=== PATIENT | female | born 1990 | race Caucasian/White ===

== ENCOUNTER 2017-06-30 14:06 | Emergency (ER) | payer OTHER ==
[~2017-06-30] VITALS: Ht 165.1 cm; Wt 52.8 kg
[2017-06-30 14:11] VITALS: Ht 165.1 cm; Wt 52.8 kg
--- NOTE | 2017-06-30 16:10 | ERD ---
ER Documentation Chief Complaint Chief Complaint COUGH SOB CWP AND RUUNY NOSE WAS TAKING Z ANKIT FOR BRONCHITIS HPI 27-year-old female complaining of cough 1 month. She was seen in urgent care 6 days ago, was given was told that she has bronchitis. Patient was given Z- Ankit. She finished the Z-Ankit. Her cough had improved for 2 days after starting taking Z-Ankit, but it has returned. Patient reports feeling chills and has night sweats last night. But she did not check her temperature. She has pain in her anterior chest and left lower ribs area, worse with coughing and arm movement. Patient also reports unexpected weight loss of 10 pounds in the last 1 month. Cough is nonproductive. She feels weak. She did not take any medications today. Denies recent travels. Denies close contact with other people with similar symptoms. Denies abdominal pain, vomiting, diarrhea. Denies shortness of breath. ROS All systems reviewed and are negative except as per history of present illness. Medications Home Meds Active Scripts Guaifenesin* (Robitussin*) 100 Mg/5 Ml Syrup, 200 MG PO Q4H Y for COUGH, #120 ML Prov:LORNA CHINCHILLA [employer] 06/30/17 Allergies Allergies: Coded Allergies: No Known Allergy (Unverified , 05/05/14) PMhx/Soc History of Surgery: No Anesthesia Reaction: No Hx Neurological Disorder: No Hx Respiratory Disorders: No Hx Cardiac Disorders: No Hx Psychiatric Problems: No Hx Miscellaneous Medical Probl: No Hx Alcohol Use: No Hx Substance Use: No Hx Tobacco Use: No Physical Exam Vitals Vital Signs Date Time Temp Pulse Resp B/P Pulse Ox O2 Delivery O2 Flow Rate FiO2 06/30/17 14:11 98.5 80 18 113/69 100 Physical Exam General: Well-developed, well-nourished, conscious and coherent, appears uncomfortable Skin: Warm and dry without rash, good texture and turgor Head: Normocephalic without evidence of trauma Eyes: Sclera and conjunctivae normal; pupils equal, round, and reactive to light; extraocular movements are intact Chest: Normal AP diameter. Good expansion without retractions. Nontender. Lungs are clear to auscultate, but decreased in the right lower lobe. Heart: Regular rate and rhythm. No murmur, rub, or gallops heard Extremities: Full range of motion. Good strength bilaterally. No clubbing, cyanosis, or edema. Peripheral pulses are intact. Sensation intact Neuro: Alert and oriented 4, GCS 15. Cranial nerves grossly intact. Motor and sensory exams nonfocal. Moves all extremities. Speech clear. Gait normal Results 24 hrs PROCEDURE: Chest radiograph CLINICAL INDICATION: Cough and night sweats. COMPARISON: None relevant listed. TECHNIQUE: Single frontal chest radiograph. FINDINGS: The lungs are clear. No pleural effusion or focal parenchymal opacity. The cardiomediastinal silhouette is normal. No suspicious bone lesion. IMPRESSION: No radiographic evidence of active tuberculosis. No acute cardiopulmonary abnormality. RPTAT: PP Physician Dell Date Time Electronically viewed and signed by Moni Zacarias Physician on 06/30/2017 16: 31 LG/ CC: LORNA CHINCHILLA [employer] Procedures/MDM 27-year-old female complaining of cough, chills, and night sweats. Chest x-ray was obtained, chest x-ray is negative. Patient does not have pneumonia or tuberculosis. Likely her claim weight loss is due to decreased appetite of fluid intake in the last month. Patient is currently afebrile, she does not have any respiratory distress. I suspect her cough and fever he is due to a viral illness. Patient appears well, stable for discharge and outpatient management. Medical decision making shared with patient and family. Education provided to patient and family. Patient and family expressed understanding of the plan. Medications on discharge: Robitussin. Follow-up: Primary care provider in 2-3 days or return to ED if worse. Disclaimer: Inadvertent spelling and grammatical errors are likely due to EHR/ dictation software use and do not reflect on the overall quality of patient care. Also, please note that the electronic time recorded on this note does not necessarily reflect the actual time of the patient encounter. Departure Diagnosis: Primary Impression: Cough Condition: Stable LORNA CHINCHILLA NP Jun 30, 2017 16:09
--- NOTE | 2017-06-30 16:31 | RADRPT ---
PROCEDURE: Chest radiograph CLINICAL INDICATION: Cough and night sweats. COMPARISON: None relevant listed. TECHNIQUE: Single frontal chest radiograph. FINDINGS: The lungs are clear. No pleural effusion or focal parenchymal opacity. The cardiomediastinal silhouette is normal. No suspicious bone lesion. IMPRESSION: No radiographic evidence of active tuberculosis. No acute cardiopulmonary abnormality. RPTAT: PP Physician Dell Date Time Electronically viewed and signed by Physician Dell on 06/30/2017 16:31 LG/
[2017-06-30] MEDS ORDERED: GUAI-637 PO (16:51)
== END 2017-06-30 17:03 | disposition home or self-care (01) ==
LOC: FTE 14:06
DX: R05 Cough (principal)
CPT/HCPCS: 71010; 87400; Z7502